=== PATIENT | female | born 1965 | race Asian ===

== ENCOUNTER 2018-10-18 18:08 | Emergency (ER) | payer OTHER ==
[~2018-10-18] VITALS: Ht 167.6 cm; Wt 136.1 kg
[2018-10-18 20:17] VITALS: BP 140/88; TEMP 97.9
== END 2018-10-18 20:19 | disposition home or self-care (01) ==
LOC: ED 18:08
DX: T18.0XXA Foreign body in mouth, initial encounter (principal); T17.228A Food in pharynx causing other injury, initial encounter; X58.XXXA Exposure to other specified factors, initial encounter; Y93.89 Activity, other specified
CPT/HCPCS: 96372; 99283; J1610

== ENCOUNTER 2019-06-12 20:32 | Observation (INO) | payer OTHER ==
[~2019-06-12] VITALS: Ht 167.6 cm; Wt 133.6 kg
[2019-06-12 20:54] VITALS: BP 162/88; TEMP 102
[2019-06-12 21:33] LABS: PLATELET COUNT 277 K/uL (152-353)
[2019-06-12 21:35] LABS: POTASSIUM 4.2 mmol/L (3.6-5.2)
[2019-06-12 22:00] VITALS: BP 133/72
[2019-06-12 23:00] VITALS: BP 123/75
[2019-06-12 23:25] VITALS: BP 123/76; TEMP 100.6
[2019-06-13] VITALS: BP 145/76
[2019-06-13 00:45] VITALS: BP 117/62; TEMP 98.3; Ht 167.6 cm; Wt 133.6 kg
[2019-06-13 04:00] VITALS: BP 117/61; TEMP 97.6
[2019-06-13 06:30] LABS: PLATELET COUNT 249 K/uL (152-353)
[2019-06-13 06:51] LABS: POTASSIUM 3.6 mmol/L (3.6-5.2)
--- NOTE | 2019-06-13 10:32 | NUR ---
IV SITE TO LEFT AC INFILTRATED WITH N.S. 22 G TO RIGHT HAND X1 STICK BEGAN AND INFUSED WELL WITH FLUSH AND CONNECTED TO NS.
--- NOTE | 2019-06-13 16:32 | NUR ---
PATIENT DISCHARGED HOME AT 1615 IN POV WITH FAMILY FRIEND DRIVING. MEDICATIONS CALLED INTO [facility] IN [place] PER MD TORRES. KEFLEX 500MG PO TID [id number] AND TESSALON 200MG PO Q8HRS X2 WEEKS, ALBUTEROL INH HFA Q8HRS PRN X1MO ALL ORDERED PER MD TORRES.PATIENT EDUCATED TO USE INCENTIVE SPIROMETER Q2HRS AND VOICED UNDERSTANDING PER MD TORRES. PATIENT EDUCATED TO COUGH INTO ELBOW ND WASH HANDS FREQUENTLY AND STAY MIN 3FT AWAY FROM OTHERS UNTIL COMPLETION OF ABT. PT VOICED UNDERSTANDING.
== END 2019-06-13 16:15 | disposition home or self-care (01) ==
LOC: ED 20:32 → MED/SURG 23:57 → UNDODEPER 06-13 00:25 → MED/SURG 06-13 16:15
PROVIDERS: Family Medicine; ADMIT Student in an Organized Health Care Education/Training Program
DX: J18.8 Other pneumonia, unspecified organism (principal); J03.00 Acute streptococcal tonsillitis, unspecified; I10 Essential (primary) hypertension; E11.9 Type 2 diabetes mellitus without complications; E66.8 Other obesity
CPT/HCPCS: 36415; 80053; 81000; 83605; 83735; 85027; 87040; 87070; 87205; 87502; 87651; 87899; 93005; 94664; 94760; 96360; 96361; 96365; 96366; 99220; 99284; G0378; J0295; J1956

== ENCOUNTER 2020-02-07 10:49 | Outpatient (CLI) | payer OTHER | END 2020-02-07 21:51 | disposition home or self-care (01) | LOC: MAMMO 10:49 | DX: Z12.31 Encounter for screening mammogram for malignant neoplasm of breast (principal) ==

== ENCOUNTER 2021-07-15 10:56 | Outpatient (CLI) | payer OTHER | END 2021-07-15 19:43 | disposition home or self-care (01) | LOC: MAMMO 10:56 | PROVIDERS: ATTEND Family Medicine | DX: Z12.31 Encounter for screening mammogram for malignant neoplasm of breast (principal) ==

== ENCOUNTER 2021-10-24 03:23 | Emergency (ER) | payer OTHER ==
[~2021-10-24] VITALS: Ht 167.6 cm; Wt 142.9 kg
[2021-10-24 03:59] LABS: PLATELET COUNT 256 K/uL (152-353)
[2021-10-24 04:08] LABS: POTASSIUM 3.9 mmol/L (3.6-5.2)
[2021-10-24 05:00] VITALS: BP 142/85; TEMP 98.7
== END 2021-10-24 05:00 | disposition home or self-care (01) ==
LOC: ED 03:23
PROVIDERS: Emergency Medicine
DX: U07.1 COVID-19 (principal); R91.8 Other nonspecific abnormal finding of lung field; E11.9 Type 2 diabetes mellitus without complications; Z79.84 Long term (current) use of oral hypoglycemic drugs; M19.09 Primary osteoarthritis, other specified site; E66.8 Other obesity
CPT/HCPCS: 80053; 83880; 84484; 85027; 87502; 87635; 87651; 93005; 96365; 99284; J0696; U0003

== ENCOUNTER 2021-10-24 13:21 | Outpatient (CLI) | payer OTHER ==
[~2021-10-24] VITALS: Ht 167.6 cm; Wt 143.4 kg
[2021-10-24 13:21] VITALS: BP 158/88; TEMP 99.1
[2021-10-24 14:10] VITALS: BP 141/78; TEMP 98.9
--- NOTE | 2021-10-24 14:19 | NUR ---
1321 PT AMBULATED INTO FACILITY TO ROOM 1128 FOR OP INFUSION. VS OBTAINED 22G PIV TO RAC X 1 ATTEMPT. PT TOLERATED WELL 1355 BEBTELOVIMAB IVP OVER 30 SECONDS FOLLOWED BY 10ML NS FLUSH. WITH NO COMPLICATIONS 1410 PT IN RECLINER WITH FEET UP WATCHING TV AND SCROLLING THROUGH HER PHONE. NO ADVERSE REACTIONS SUSPECTED AT THIS TIME.
[2021-10-24 14:25] VITALS: BP 130/81; TEMP 98.7
[2021-10-24 14:55] VITALS: BP 123/82; TEMP 98.3
--- NOTE | 2021-10-24 15:10 | NUR ---
1455 PT TOLERATED INFUSION WITH NO ADVERSE REACTIONS SUSPECTED. IV D/C INTACT SITE CARE PROVIDED. PT AMBULATED OUT OF FACILITY TO POV IN NO DISTRESS
== END 2021-10-24 23:40 | disposition home or self-care (01) ==
LOC: INF 13:21
PROVIDERS: ATTEND Family Medicine
DX: Z23 Encounter for immunization (principal); U07.1 COVID-19
CPT/HCPCS: 96374; Q0222

== ENCOUNTER 2022-10-19 08:38 | Outpatient (CLI) | payer OTHER | END 2022-10-19 19:10 | disposition home or self-care (01) | LOC: US 08:38 | PROVIDERS: ATTEND Nurse Practitioner Acute Care | DX: R06.09 Other forms of dyspnea (principal); R74.8 Abnormal levels of other serum enzymes; Z12.31 Encounter for screening mammogram for malignant neoplasm of breast ==